=== PATIENT | female | born 1935 | race African-American/Black ===

== ENCOUNTER 2017-07-22 20:05 | Inpatient (IN) | payer MEDICARE, OTHER ==
[~2017-07-22] VITALS: Ht 157.5 cm; Wt 103.9 kg
[2017-07-22] MEDS ORDERED: IV NS 0.9% 500 ML BAG IV ONE (20:30)
[2017-07-22] MEDS ORDERED: VANCOMYCIN 1 GM in IV D5W 250 ML IV ONE (20:30)
[2017-07-22] MEDS ORDERED: MORPHINE SULFATE INJ 2 MG/ML DISP.SYRIN IV ONE (20:30)
[2017-07-22] MEDS ORDERED: ONDANSETRON HCL/PF 4 MG/2 ML VIAL IVP ONE (20:30)
[2017-07-22] MEDS ORDERED: PIPERACILLIN /TAZOBACTAM 3.375 G in IV D5W 50 ML IV ONE (20:30)
[2017-07-22] MEDS ORDERED: MORPHINE SULFATE INJ 2 MG/ML DISP.SYRIN ONE (20:46)
[2017-07-22] MEDS ORDERED: ONDANSETRON HCL/PF 4 MG/2 ML VIAL ONE (20:46)
[2017-07-22 20:48] LABS: BASOPHILS % (AUTO) 0.6 % (0.0-2.0); EOSINOPHILS # (AUTO) 0.1 /CMM (0.0-0.7); EOSINOPHILS % (AUTO) 2.1 % (0.0-6.0); HEMATOCRIT 33 % (33-45); HEMOGLOBIN 11.5 g/dL (11.5-14.8); LYMPHOCYTES # (AUTO) 0.9 /CMM (0.8-4.8); LYMPHOCYTES % (AUTO) 15.8 % (20.0-44.0); MEAN CORPUSCULAR HEMOGLOBIN 31 PG (26.0-33.0); MEAN CORPUSCULAR HGB CONC 35 g/dl (31.0-36.0); MEAN CORPUSCULAR VOLUME 89 fL (82-100); MONOCYTES # (AUTO) 0.5 /CMM (0.1-1.30); NEUTROPHILS # (AUTO) 4.5 /CMM (1.8-8.9); NEUTROPHILS % (AUTO) 72.5 % (43.0-81.0); PLATELET COUNT (AUTO) 257 /CMM (150-450); RDW COEFFICIENT OF VARIATION 13.9 (11.5-15.0); RED BLOOD CELL COUNT(AUTO) 3.74 MIL/uL (4.0-5.2)
[2017-07-22 20:58] LABS: CARBON DIOXIDE 32 mmol/L (21-32); CHLORIDE 99 mmol/L (98-107); CREATININE 1.4 mg/dL (0.6-1.3); GLUCOSE 111 mg/dL (74-106); POTASSIUM 4.2 mmol/L (3.5-5.1); SODIUM SERUM 137 mmol/L (136-145); UREA NITROGEN, BLOOD 27 mg/dL (7-18)
[2017-07-22 21:02] LABS: INR 0.95 (0.85-1.15)
[2017-07-22 21:04] LABS: ALANINE AMINOTRANSFERASE 60 U/L (12-78); ALBUMIN 2.6 g/dL (3.4-5.0); ALKALINE PHOSPHATASE 424 U/L (46-116); ASPARTATE AMINOTRANSFERASE 52 U/L (15-37); BILIRUBIN,DIRECT 0.2 mg/dL (0.0-0.2); BILIRUBIN,TOTAL 0.4 mg/dL (0.2-1.0); TOTAL PROTEIN, SERUM 8.6 g/dL (6.4-8.2)
[2017-07-22 21:06] LABS: TROPONIN I < 0.017 ng/mL (0.00-0.056)
[2017-07-22 21:26] LABS: APPEARANCE,URINE Clear (CLEAR); BILIRUBIN,URINE Negative (NEGATIVE); BLOOD, URINE Moderate Ery/uL (NEGATIVE); COLOR,URINE Yellow (YELLOW); KETONES,URINE Negative (NEGATIVE); LEUKOCYTE ESTERASE ,URINE Negative (NEGATIVE); NITRITE, URINE Negative (NEGATIVE); PH,URINE 6.5 (5.0-8.0); PROTEIN,URINE Negative (NEGATIVE); UGLUCOSE Negative (NEGATIVE); UROBILINOGEN,URINE 0.2 EU/dL (0.2)
[2017-07-22 21:27] LABS: BACTERIA,URINE Rare /HPF (None Seen); SQUAMOUS EPITHELIAL CELL,UR Few /HPF (None Seen); WBC,URINE NONE SEEN /HPF (0-3)
[2017-07-22] MEDS ORDERED: MAG HYDROX/AL HYDROX/SIMETH 30 ML UDC PO PRN (21:30)
[2017-07-22] MEDS ORDERED: ZOLPIDEM TARTRATE 5 MG TABLET PO PRN (21:30)
[2017-07-22] MEDS ORDERED: ACETAMINOPHEN 325 MG TABLET PO PRN (21:30)
[2017-07-22] MEDS ORDERED: MORPHINE SULFATE INJ 2 MG/ML DISP.SYRIN IV PRN (21:30)
[2017-07-22 23:15] VITALS: BP 139/96
[2017-07-23] MEDS: BLOOD SUGAR DIAGNOSTIC 1 EACH STRIP IN SCH ×7 (00:16→23:09)
[2017-07-23] MEDS: HYDROCODONE/APAP 5/325MG 1 EACH TABLET PO PRN ×2 (00:25→08:56)
[2017-07-23 04:00] VITALS: BP 114/72
[2017-07-23] MEDS ORDERED: PIPERACILLIN /TAZOBACTAM 2.25 G VIAL IV ONE (05:29)
[2017-07-23] MEDS: PIPERACILLIN /TAZOBACTAM 2.25 G in IV D5W 50 ML IV SCH ×3 (05:44→20:56)
[2017-07-23] MEDS: DEXTROSE 50%-WATER 50 ML DISP.SYRIN IV PRN ×2 (06:53→17:11)
[2017-07-23 07:21] LABS: BASOPHILS % (AUTO) 0.3 % (0.0-2.0); EOSINOPHILS # (AUTO) 0.3 /CMM (0.0-0.7); EOSINOPHILS % (AUTO) 4.7 % (0.0-6.0); HEMATOCRIT 30 % (33-45); LYMPHOCYTES # (AUTO) 0.7 /CMM (0.8-4.8); MEAN CORPUSCULAR HEMOGLOBIN 30 PG (26.0-33.0); MEAN CORPUSCULAR HGB CONC 33 g/dl (31.0-36.0); MEAN CORPUSCULAR VOLUME 91 fL (82-100); MONOCYTES # (AUTO) 0.7 /CMM (0.1-1.30); MONOCYTES % (AUTO) 12.8 % (2.0-12.0); NEUTROPHILS # (AUTO) 3.9 /CMM (1.8-8.9); NEUTROPHILS % (AUTO) 69.2 % (43.0-81.0); PLATELET COUNT (AUTO) 207 /CMM (150-450); RDW COEFFICIENT OF VARIATION 14.8 (11.5-15.0); RED BLOOD CELL COUNT(AUTO) 3.29 MIL/uL (4.0-5.2); WHITE BLOOD COUNT (AUTO) 5.6 K/uL (4.3-11.0)
[2017-07-23 07:28] LABS: CHOLESTEROL 115 mg/dL (<200); HDL CHOLESTEROL 63 mg/dL (40-60); LDL 44 mg/dL (0-99); THYROID STIMULATING HORMONE 3.861 uIU/mL (0.358-3.74); TRIGLYCERIDES 36 mg/dL (30-150)
[2017-07-23 07:30] LABS: CALCIUM, SERUM 8.3 mg/dL (8.5-10.1); CARBON DIOXIDE 31 mmol/L (21-32); CHLORIDE 104 mmol/L (98-107); CREATININE 1.3 mg/dL (0.6-1.3); GLUCOSE 86 mg/dL (74-106); MAGNESIUM 2.2 mg/dL (1.8-2.4); PHOSPHORUS 3.7 mg/dL (2.5-4.9); POTASSIUM 4.2 mmol/L (3.5-5.1); SODIUM SERUM 142 mmol/L (136-145); UREA NITROGEN, BLOOD 25 mg/dL (7-18)
[2017-07-23] MEDS ORDERED: FEE PK DOSING 1 MIN EA MC ONE (07:41)
[2017-07-23 08:00] VITALS: BP 86/54
[2017-07-23] MEDS ORDERED: FUROSEMIDE 20 MG/2 ML VIAL IV ONE (08:00)
[2017-07-23] MEDS ORDERED: LIDOCAINE 1% INJ 50 ML MDV IJ ONE (09:00)
[2017-07-23] MEDS: PANTOPRAZOLE 40 MG TABLET.DR PO SCH (09:02)
[2017-07-23] MEDS: HEPARIN SODIUM, PORCINE 5000 UNITS/1 ML VIAL SQ SCH ×2 (09:12→21:02)
[2017-07-23] MEDS ORDERED: LOSA25TA13 PO (09:25)
[2017-07-23] MEDS ORDERED: LEVO75TA7 PO (09:25)
[2017-07-23] MEDS ORDERED: FURO-144 PO (09:25)
[2017-07-23] MEDS ORDERED: Z GUARD REMEDY 2 OZ OINT TP PRN (09:30)
[2017-07-23] MEDS ORDERED: FUROSEMIDE 40 MG TABLET PO SCH (11:00)
[2017-07-23] MEDS: Z GUARD REMEDY 2 OZ OINT TP SCH (11:01)
[2017-07-23] MEDS: LEVOTHYROXINE SODIUM 75 MCG TABLET PO SCH (11:09)
[2017-07-23] MEDS ORDERED: IV D5/ 0.9% NACL 1,000 ML IV PRN (11:30)
[2017-07-23 16:01] VITALS: BP 106/56
[2017-07-23] MEDS: VANCOMYCIN 0.75 GM in IV NS 0.9% 250 ML IV SCH (16:08)
[2017-07-23] MEDS: CLOTRIMAZOLE 1% 15 GM TUBE TP SCH (17:30)
[2017-07-23] MEDS: IV 10% DEXTROSE 1,000 ML IV PRN (19:23)
[2017-07-23] MEDS: INSULIN REGULAR, HUMAN 100 UNIT/ML 3 ML VIAL SQ PRN (19:46)
[2017-07-23 20:00] VITALS: BP 109/52
[2017-07-24] MEDS: BLOOD SUGAR DIAGNOSTIC 1 EACH STRIP IN SCH ×11 (01:02→20:41)
[2017-07-24] MEDS: DEXTROSE 50%-WATER 50 ML DISP.SYRIN IV PRN (02:51)
[2017-07-24] MEDS: PIPERACILLIN /TAZOBACTAM 2.25 G in IV D5W 50 ML IV SCH ×4 (04:01→23:30)
[2017-07-24] MEDS: IV 10% DEXTROSE 1,000 ML IV PRN (04:55)
[2017-07-24] MEDS: CLOTRIMAZOLE 1% 15 GM TUBE TP SCH ×2 (04:57→16:48)
[2017-07-24 07:12] LABS: BASOPHILS % (AUTO) 0.5 % (0.0-2.0); EOSINOPHILS # (AUTO) 0.3 /CMM (0.0-0.7); EOSINOPHILS % (AUTO) 6.9 % (0.0-6.0); HEMATOCRIT 29 % (33-45); HEMOGLOBIN 9.8 g/dL (11.5-14.8); LYMPHOCYTES # (AUTO) 0.7 /CMM (0.8-4.8); LYMPHOCYTES % (AUTO) 15.8 % (20.0-44.0); MEAN CORPUSCULAR HEMOGLOBIN 31 PG (26.0-33.0); MEAN CORPUSCULAR HGB CONC 34 g/dl (31.0-36.0); MEAN CORPUSCULAR VOLUME 91 fL (82-100); MONOCYTES # (AUTO) 0.5 /CMM (0.1-1.30); MONOCYTES % (AUTO) 10.9 % (2.0-12.0); NEUTROPHILS # (AUTO) 2.9 /CMM (1.8-8.9); NEUTROPHILS % (AUTO) 65.9 % (43.0-81.0); PLATELET COUNT (AUTO) 178 /CMM (150-450); RDW COEFFICIENT OF VARIATION 14.4 (11.5-15.0); WHITE BLOOD COUNT (AUTO) 4.3 K/uL (4.3-11.0)
[2017-07-24 07:26] LABS: ALANINE AMINOTRANSFERASE 42 U/L (12-78); ALBUMIN 1.9 g/dL (3.4-5.0); ALKALINE PHOSPHATASE 303 U/L (46-116); ASPARTATE AMINOTRANSFERASE 41 U/L (15-37); BILIRUBIN,TOTAL 0.5 mg/dL (0.2-1.0); CARBON DIOXIDE 28 mmol/L (21-32); CHLORIDE 100 mmol/L (98-107); CREATININE 1.4 mg/dL (0.6-1.3); GLUCOSE 147 mg/dL (74-106); MAGNESIUM 2.1 mg/dL (1.8-2.4); PHOSPHORUS 3.5 mg/dL (2.5-4.9); SODIUM SERUM 134 mmol/L (136-145); TOTAL PROTEIN, SERUM 6.8 g/dL (6.4-8.2); UREA NITROGEN, BLOOD 23 mg/dL (7-18)
[2017-07-24 07:28] LABS: TROPONIN I < 0.017 ng/mL (0.00-0.056)
[2017-07-24] MEDS ORDERED: OLOP2.5D RIGHTEYE (07:37)
[2017-07-24] MEDS ORDERED: PRED5DRO16 LEFTEYE (07:37)
[2017-07-24 08:00] VITALS: BP 111/57
[2017-07-24] MEDS: PANTOPRAZOLE 40 MG TABLET.DR PO SCH (08:14)
[2017-07-24] MEDS: LEVOTHYROXINE SODIUM 75 MCG TABLET PO SCH (08:14)
[2017-07-24] MEDS ORDERED: FUROSEMIDE 20 MG TABLET PO SCH (09:00)
[2017-07-24] MEDS: Z GUARD REMEDY 2 OZ OINT TP SCH (09:12)
[2017-07-24] MEDS: HEPARIN SODIUM, PORCINE 5000 UNITS/1 ML VIAL SQ SCH ×2 (09:14→20:51)
[2017-07-24] MEDS: HYDROCODONE/APAP 5/325MG 1 EACH TABLET PO PRN ×2 (09:15→20:40)
[2017-07-24] MEDS: VANCOMYCIN 0.75 GM in IV NS 0.9% 250 ML IV SCH (10:47)
[2017-07-24 16:00] VITALS: BP 100/53
[2017-07-24] MEDS: LACTOBACILLUS RHAMNOSUS GG 1 EACH CAP.SPRINK PO SCH (16:48)
[2017-07-24] MEDS: ONDANSETRON HCL/PF 4 MG/2 ML VIAL IVP PRN (16:52)
[2017-07-24] MEDS: INSULIN REGULAR, HUMAN 100 UNIT/ML 3 ML VIAL SQ PRN ×2 (17:10→20:41)
[2017-07-24] MEDS: prednisoLONE ACET 1% OPHT DROP 5 ML BOTTLE LEFTEYE SCH ×2 (18:03→23:31)
[2017-07-24 20:00] VITALS: BP 123/68
[2017-07-25] MEDS: MAGNESIUM HYDROXIDE 30 ML UDC PO PRN ×2 (00:43→20:33)
[2017-07-25] MEDS: BLOOD SUGAR DIAGNOSTIC 1 EACH STRIP IN SCH ×6 (00:58→20:25)
[2017-07-25 03:13] LABS: BASOPHILS % (AUTO) 0.7 % (0.0-2.0); EOSINOPHILS # (AUTO) 0.3 /CMM (0.0-0.7); EOSINOPHILS % (AUTO) 7.8 % (0.0-6.0); HEMATOCRIT 29 % (33-45); HEMOGLOBIN 9.5 g/dL (11.5-14.8); LYMPHOCYTES # (AUTO) 0.9 /CMM (0.8-4.8); LYMPHOCYTES % (AUTO) 23.9 % (20.0-44.0); MEAN CORPUSCULAR HEMOGLOBIN 30 PG (26.0-33.0); MEAN CORPUSCULAR HGB CONC 33 g/dl (31.0-36.0); MEAN CORPUSCULAR VOLUME 91 fL (82-100); MONOCYTES # (AUTO) 0.4 /CMM (0.1-1.30); MONOCYTES % (AUTO) 10.4 % (2.0-12.0); NEUTROPHILS # (AUTO) 2.2 /CMM (1.8-8.9); NEUTROPHILS % (AUTO) 57.2 % (43.0-81.0); PLATELET COUNT (AUTO) 207 /CMM (150-450); RDW COEFFICIENT OF VARIATION 14.6 (11.5-15.0); RED BLOOD CELL COUNT(AUTO) 3.19 MIL/uL (4.0-5.2); WHITE BLOOD COUNT (AUTO) 3.8 K/uL (4.3-11.0)
[2017-07-25 03:28] LABS: CARBON DIOXIDE 29 mmol/L (21-32); CHLORIDE 99 mmol/L (98-107); CREATININE 1.5 mg/dL (0.6-1.3); GLUCOSE 109 mg/dL (74-106); MAGNESIUM 2.1 mg/dL (1.8-2.4); PHOSPHORUS 3.6 mg/dL (2.5-4.9); POTASSIUM 4.2 mmol/L (3.5-5.1); SODIUM SERUM 134 mmol/L (136-145); UREA NITROGEN, BLOOD 21 mg/dL (7-18)
[2017-07-25] MEDS: VANCOMYCIN 0.75 GM in IV NS 0.9% 250 ML IV SCH (03:54)
[2017-07-25] MEDS: PIPERACILLIN /TAZOBACTAM 2.25 G in IV D5W 50 ML IV SCH ×4 (05:05→23:12)
[2017-07-25] MEDS: CLOTRIMAZOLE 1% 15 GM TUBE TP SCH ×2 (05:11→17:57)
[2017-07-25] MEDS: prednisoLONE ACET 1% OPHT DROP 5 ML BOTTLE LEFTEYE SCH ×4 (05:12→23:12)
[2017-07-25] MEDS: INSULIN REGULAR, HUMAN 100 UNIT/ML 3 ML VIAL SQ PRN ×2 (05:15→09:45)
[2017-07-25 08:00] VITALS: BP 138/70
[2017-07-25] MEDS: LEVOTHYROXINE SODIUM 75 MCG TABLET PO SCH (09:15)
[2017-07-25] MEDS: PANTOPRAZOLE 40 MG TABLET.DR PO SCH (09:16)
[2017-07-25] MEDS: Z GUARD REMEDY 2 OZ OINT TP SCH (09:17)
[2017-07-25] MEDS: OLOPATADINE HCL 0.1% OPHTH BOTTLE RIGHTEYE SCH (09:37)
[2017-07-25] MEDS: LACTOBACILLUS RHAMNOSUS GG 1 EACH CAP.SPRINK PO SCH ×2 (09:37→17:59)
[2017-07-25] MEDS: HEPARIN SODIUM, PORCINE 5000 UNITS/1 ML VIAL SQ SCH ×2 (09:38→20:26)
[2017-07-25] MEDS: HYDROCODONE/APAP 5/325MG 1 EACH TABLET PO PRN (11:49)
[2017-07-25] MEDS: SOD FERRIC GLUC 125 MG in IV NS 0.9% 100 ML IV SCH (14:44)
[2017-07-25 16:00] VITALS: BP 141/68
[2017-07-25 20:00] VITALS: BP 136/76
[2017-07-26] MEDS: BLOOD SUGAR DIAGNOSTIC 1 EACH STRIP IN SCH ×6 (00:24→20:16)
[2017-07-26] MEDS: PIPERACILLIN /TAZOBACTAM 2.25 G in IV D5W 50 ML IV SCH ×4 (05:12→23:16)
[2017-07-26] MEDS: prednisoLONE ACET 1% OPHT DROP 5 ML BOTTLE LEFTEYE SCH ×4 (05:12→23:20)
[2017-07-26] MEDS: CLOTRIMAZOLE 1% 15 GM TUBE TP SCH ×2 (05:14→17:45)
[2017-07-26] MEDS ORDERED: VANCOMYCIN 0.75 GM in IV NS 0.9% 250 ML IV SCH (06:00)
[2017-07-26 06:39] LABS: BASOPHILS % (AUTO) 0.8 % (0.0-2.0); EOSINOPHILS # (AUTO) 0.3 /CMM (0.0-0.7); HEMATOCRIT 31 % (33-45); HEMOGLOBIN 9.9 g/dL (11.5-14.8); LYMPHOCYTES # (AUTO) 0.8 /CMM (0.8-4.8); LYMPHOCYTES % (AUTO) 20.1 % (20.0-44.0); MEAN CORPUSCULAR HEMOGLOBIN 30 PG (26.0-33.0); MEAN CORPUSCULAR HGB CONC 33 g/dl (31.0-36.0); MEAN CORPUSCULAR VOLUME 91 fL (82-100); MONOCYTES # (AUTO) 0.4 /CMM (0.1-1.30); MONOCYTES % (AUTO) 9.4 % (2.0-12.0); NEUTROPHILS # (AUTO) 2.6 /CMM (1.8-8.9); NEUTROPHILS % (AUTO) 62.7 % (43.0-81.0); PLATELET COUNT (AUTO) 216 /CMM (150-450); RDW COEFFICIENT OF VARIATION 14.9 (11.5-15.0); RED BLOOD CELL COUNT(AUTO) 3.36 MIL/uL (4.0-5.2); WHITE BLOOD COUNT (AUTO) 4.2 K/uL (4.3-11.0)
[2017-07-26 06:54] LABS: CALCIUM, SERUM 8.1 mg/dL (8.5-10.1); CARBON DIOXIDE 30 mmol/L (21-32); CHLORIDE 100 mmol/L (98-107); CREATININE 1.4 mg/dL (0.6-1.3); GLUCOSE 129 mg/dL (74-106); MAGNESIUM 2.6 mg/dL (1.8-2.4); PHOSPHORUS 3.1 mg/dL (2.5-4.9); POTASSIUM 4.6 mmol/L (3.5-5.1); SODIUM SERUM 136 mmol/L (136-145); UREA NITROGEN, BLOOD 19 mg/dL (7-18)
[2017-07-26 08:00] VITALS: BP 120/72
[2017-07-26] MEDS: LACTOBACILLUS RHAMNOSUS GG 1 EACH CAP.SPRINK PO SCH ×2 (08:28→17:44)
[2017-07-26] MEDS: LEVOTHYROXINE SODIUM 75 MCG TABLET PO SCH (08:28)
[2017-07-26] MEDS: PANTOPRAZOLE 40 MG TABLET.DR PO SCH (08:28)
[2017-07-26] MEDS: OLOPATADINE HCL 0.1% OPHTH BOTTLE RIGHTEYE SCH (08:30)
[2017-07-26] MEDS: HEPARIN SODIUM, PORCINE 5000 UNITS/1 ML VIAL SQ SCH ×2 (08:33→20:18)
[2017-07-26] MEDS: Z GUARD REMEDY 2 OZ OINT TP SCH (08:42)
[2017-07-26 09:17] LABS: *SPE A/G RATIO 0.6 (0.7-1.7); *SPE ALBUMIN 2.4 g/dL (2.9-4.4); *SPE ALPHA-1-GLOBULIN 0.3 g/dL (0.0-0.4); *SPE ALPHA-2-GLOBULIN 0.9 g/dL (0.4-1.0); *SPE BETA GLOBULIN 1.2 g/dL (0.7-1.3); *SPE M-SPIKE Not Observed g/dL (Not Observed); *SPEGAMMA GLOBULIN 1.6 g/dL (0.4-1.8)
[2017-07-26] MEDS: LINEZOLID 600 MG TABLET PO SCH ×2 (11:47→20:19)
[2017-07-26] MEDS: SOD FERRIC GLUC 125 MG in IV NS 0.9% 100 ML IV SCH (14:38)
[2017-07-26 16:00] VITALS: BP 145/82
[2017-07-26] MEDS: ONDANSETRON HCL/PF 4 MG/2 ML VIAL IVP PRN (19:42)
[2017-07-26 20:00] VITALS: BP 138/73
[2017-07-27] MEDS: BLOOD SUGAR DIAGNOSTIC 1 EACH STRIP IN SCH ×6 (00:47→20:56)
[2017-07-27] MEDS: PIPERACILLIN /TAZOBACTAM 2.25 G in IV D5W 50 ML IV SCH ×3 (05:03→17:40)
[2017-07-27] MEDS: prednisoLONE ACET 1% OPHT DROP 5 ML BOTTLE LEFTEYE SCH ×3 (05:03→17:38)
[2017-07-27] MEDS: CLOTRIMAZOLE 1% 15 GM TUBE TP SCH ×2 (05:10→17:41)
[2017-07-27 06:08] LABS: BASOPHILS % (AUTO) 0.6 % (0.0-2.0); EOSINOPHILS # (AUTO) 0.1 /CMM (0.0-0.7); EOSINOPHILS % (AUTO) 3.1 % (0.0-6.0); HEMATOCRIT 31 % (33-45); LYMPHOCYTES # (AUTO) 0.8 /CMM (0.8-4.8); MEAN CORPUSCULAR HEMOGLOBIN 30 PG (26.0-33.0); MEAN CORPUSCULAR HGB CONC 32 g/dl (31.0-36.0); MEAN CORPUSCULAR VOLUME 92 fL (82-100); MONOCYTES # (AUTO) 0.4 /CMM (0.1-1.30); MONOCYTES % (AUTO) 8.8 % (2.0-12.0); NEUTROPHILS # (AUTO) 2.7 /CMM (1.8-8.9); NEUTROPHILS % (AUTO) 66.5 % (43.0-81.0); PLATELET COUNT (AUTO) 219 /CMM (150-450); RDW COEFFICIENT OF VARIATION 14.7 (11.5-15.0)
[2017-07-27 06:13] LABS: CALCIUM, SERUM 8.5 mg/dL (8.5-10.1); CARBON DIOXIDE 31 mmol/L (21-32); CHLORIDE 100 mmol/L (98-107); CREATININE 1.3 mg/dL (0.6-1.3); GLUCOSE 100 mg/dL (74-106); MAGNESIUM 2.6 mg/dL (1.8-2.4); PHOSPHORUS 3.3 mg/dL (2.5-4.9); POTASSIUM 4.8 mmol/L (3.5-5.1); SODIUM SERUM 136 mmol/L (136-145); UREA NITROGEN, BLOOD 17 mg/dL (7-18)
[2017-07-27 08:00] VITALS: BP 134/75
[2017-07-27 08:03] VITALS: BP 134/71
[2017-07-27] MEDS: LACTOBACILLUS RHAMNOSUS GG 1 EACH CAP.SPRINK PO SCH ×2 (09:31→17:37)
[2017-07-27] MEDS: LINEZOLID 600 MG TABLET PO SCH ×2 (09:31→20:56)
[2017-07-27] MEDS: PANTOPRAZOLE 40 MG TABLET.DR PO SCH (09:31)
[2017-07-27] MEDS: OLOPATADINE HCL 0.1% OPHTH BOTTLE RIGHTEYE SCH (09:31)
[2017-07-27] MEDS: LEVOTHYROXINE SODIUM 75 MCG TABLET PO SCH (09:32)
[2017-07-27] MEDS: HYDROCODONE/APAP 5/325MG 1 EACH TABLET PO PRN ×2 (09:33→17:37)
[2017-07-27] MEDS: Z GUARD REMEDY 2 OZ OINT TP SCH (09:37)
[2017-07-27] MEDS: HEPARIN SODIUM, PORCINE 5000 UNITS/1 ML VIAL SQ SCH ×2 (09:40→20:59)
[2017-07-27] MEDS: SOD FERRIC GLUC 125 MG in IV NS 0.9% 100 ML IV SCH (15:26)
[2017-07-27] MEDS: ONDANSETRON HCL/PF 4 MG/2 ML VIAL IVP PRN (15:26)
[2017-07-27] MEDS: MAGNESIUM HYDROXIDE 30 ML UDC PO PRN (15:26)
[2017-07-27 16:00] VITALS: BP 145/72
[2017-07-27 20:00] VITALS: BP 107/64
[2017-07-27] MEDS ORDERED: LEVOFLOXACIN 750 MG /D5W 150ML 750 MG in PREMIX 1 EA IV SCH (20:00)
[2017-07-28] MEDS: BLOOD SUGAR DIAGNOSTIC 1 EACH STRIP IN SCH ×4 (00:33→12:21)
[2017-07-28] MEDS: prednisoLONE ACET 1% OPHT DROP 5 ML BOTTLE LEFTEYE SCH ×3 (00:33→12:21)
[2017-07-28 08:00] VITALS: BP 127/72
[2017-07-28] MEDS: PANTOPRAZOLE 40 MG TABLET.DR PO SCH (08:23)
[2017-07-28] MEDS: LINEZOLID 600 MG TABLET PO SCH (08:23)
[2017-07-28] MEDS: LEVOTHYROXINE SODIUM 75 MCG TABLET PO SCH (08:23)
[2017-07-28] MEDS: OLOPATADINE HCL 0.1% OPHTH BOTTLE RIGHTEYE SCH (08:23)
[2017-07-28] MEDS: LACTOBACILLUS RHAMNOSUS GG 1 EACH CAP.SPRINK PO SCH (08:23)
[2017-07-28] MEDS: HEPARIN SODIUM, PORCINE 5000 UNITS/1 ML VIAL SQ SCH (08:25)
[2017-07-28] MEDS: Z GUARD REMEDY 2 OZ OINT TP SCH (08:25)
[2017-07-28] MEDS ORDERED: BISACODYL SUPP (10 MG) 10 MG/SUPP.RECT SUPP.RECT RC PRN (12:00)
[2017-07-28] MEDS ORDERED: LACT1CAP72 PO (12:49)
[2017-07-28] MEDS ORDERED: LINE600T PO (12:49)
[2017-07-28] MEDS ORDERED: LEVO750T46 PO (12:49)
== END 2017-07-28 14:35 | DRG 264 ==
LOC: ER 20:06 → TELE 22:05 → MED 07-23 02:10
PROVIDERS: ADMIT Nurse Practitioner Acute Care; ATTEND Nurse Practitioner Acute Care
PROC: 0JBP0ZZ Excision of Left Lower Leg Subcutaneous Tissue and Fascia, Open Approach (ICD-10-PCS; principal; 2017-07-23)
PROC: 0JBN0ZZ Excision of Right Lower Leg Subcutaneous Tissue and Fascia, Open Approach (ICD-10-PCS; 2017-07-23)
DX: I87.2 Venous insufficiency (chronic) (peripheral) (principal); N17.0 Acute kidney failure with tubular necrosis; I50.33 Acute on chronic diastolic (congestive) heart failure; E44.0 Moderate protein-calorie malnutrition; L03.115 Cellulitis of right lower limb; E11.22 Type 2 diabetes mellitus with diabetic chronic kidney disease; E11.649 Type 2 diabetes mellitus with hypoglycemia without coma; E88.09 Other disorders of plasma-protein metabolism, not elsewhere classified; I13.0 Hypertensive heart and chronic kidney disease with heart failure and stage 1 through stage 4 chronic kidney disease, or unspecified chronic kidney disease; N39.0 Urinary tract infection, site not specified; Z68.41 Body mass index [BMI] 40.0-44.9, adult; L03.116 Cellulitis of left lower limb; N18.9 Chronic kidney disease, unspecified; M17.0 Bilateral primary osteoarthritis of knee; B96.5 Pseudomonas (aeruginosa) (mallei) (pseudomallei) as the cause of diseases classified elsewhere; E03.9 Hypothyroidism, unspecified; E66.9 Obesity, unspecified; G89.29 Other chronic pain; Z96.653 Presence of artificial knee joint, bilateral; Z98.42 Cataract extraction status, left eye; M62.50 Muscle wasting and atrophy, not elsewhere classified, unspecified site; D64.9 Anemia, unspecified; L30.4 Erythema intertrigo; K59.00 Constipation, unspecified; B95.2 Enterococcus as the cause of diseases classified elsewhere; Z16.21 Resistance to vancomycin; Z79.4 Long term (current) use of insulin
CPT/HCPCS: 36415; 71045-TC; 80048-TC; 80053-TC; 80061-TC; 80076-TC; 80202-TC; 81000-TC; 82728-TC; 82945-TC; 82962-TC; 83540-TC; 83605-TC; 83735-TC; 84100-TC; 84155; 84165; 84443-TC; 84484-TC; 85025-TC; 85730-TC; 87040-TC; 87070-TC; 87081-TC; 87086-TC; 87186-TC; 93307-TC; 93970-TC; 97110-TC; 97116-TC; 97530-TC; A4216; A4606; A6253; A6402; A6403; J1644; J1815; J1940; J1956; J2270; J2405; J2543; J2916; J3370; J3490; J7030; J7040; J7050; J7060; Z7610

== ENCOUNTER 2018-08-27 18:37 | Inpatient (IN) | payer MEDICARE, OTHER ==
[~2018-08-27] VITALS: Ht 154.9 cm; Wt 108.9 kg
[~2018-08-27 18:37] MED LIST: FURO-144 PO; LACT1CAP72 PO; LEVO750T46 PO; LEVO75TA7 PO; LINE600T PO; LOSA25TA27 PO; OLOP2.5D RIGHTEYE; PRED5DRO16 LEFTEYE
--- NOTE | 2018-08-27 18:37 | NUR ---
PT BIB [facility] FOR [facility]OMITING BLOOD, PT IS AAOX2, NOT IN RESPIRATORY DISTRESS, HOOKED TO MONITOR, V/S STABLE, KEPT RESTED AND COMFORTABLE, WILL CONTINUE TO MONITOR.
--- NOTE | 2018-08-27 18:40 | NUR ---
IV LINE ESTABLISHED, LABS DRAWNED AND SENT TO LAB.
[2018-08-27] MEDS ORDERED: OCTREOTIDE 1,250 MCG in IV NS 0.9% 250 ML IV ONE (19:00)
[2018-08-27] MEDS ORDERED: PANTOPRAZOLE 40 MG VIAL IV ONE (19:00)
[2018-08-27] MEDS ORDERED: ONDANSETRON HCL/PF 4 MG/2 ML VIAL IVP ONE (19:00)
[2018-08-27] MEDS ORDERED: OCTREOTIDE 50 MCG/ML AMPUL IV ONE (19:00)
[2018-08-27] MEDS ORDERED: IV NS 0.9% 500 ML BAG IV ONE (19:00)
[2018-08-27] MEDS ORDERED: POLY15DR40 EACHEYE (19:06)
[2018-08-27] MEDS ORDERED: ALBU18HF2 INH (19:06)
[2018-08-27] MEDS ORDERED: ASPI-1169 PO (19:06)
[2018-08-27] MEDS ORDERED: POTA8TAB8 PO (19:07)
[2018-08-27 19:08] LABS: BASOPHILS % (AUTO) 0.5 % (0.0-2.0); EOSINOPHILS % (AUTO) 1.3 % (0.0-6.0); HEMATOCRIT 27 % (33-45); LYMPHOCYTES # (AUTO) 0.4 /CMM (0.8-4.8); MEAN CORPUSCULAR HGB CONC 33 g/dl (31.0-36.0); MEAN CORPUSCULAR VOLUME 94 fL (82-100); MONOCYTES # (AUTO) 0.2 /CMM (0.1-1.30); MONOCYTES % (AUTO) 4.1 % (2.0-12.0); NEUTROPHILS # (AUTO) 3.2 /CMM (1.8-8.9); NEUTROPHILS % (AUTO) 83.1 % (43.0-81.0); PLATELET COUNT (AUTO) 198 /CMM (150-450); RED BLOOD CELL COUNT(AUTO) 2.89 MIL/uL (4.0-5.2); WHITE BLOOD COUNT (AUTO) 3.9 K/uL (4.3-11.0)
[2018-08-27] MEDS ORDERED: PANTOPRAZOLE 40 MG VIAL ONE (19:09)
[2018-08-27] MEDS ORDERED: ONDANSETRON HCL/PF 4 MG/2 ML VIAL ONE (19:09)
[2018-08-27] MEDS ORDERED: OCTREOTIDE 100 MCG/ML VIAL ONE ×2 (19:10→19:24)
[2018-08-27] MEDS ORDERED: OCTREOTIDE 500 MCG/ML VIAL ONE (19:24)
[2018-08-27 19:29] LABS: CARBON DIOXIDE 25 mmol/L (21-32); CHLORIDE 103 mmol/L (98-107); CREATININE 1.1 mg/dL (0.6-1.3); GLUCOSE 150 mg/dL (74-106); POTASSIUM 4.2 mmol/L (3.5-5.1); SODIUM SERUM 138 mmol/L (136-145); UREA NITROGEN, BLOOD 32 mg/dL (7-18)
[2018-08-27 19:35] LABS: ALANINE AMINOTRANSFERASE 733 U/L (12-78); ALBUMIN 3.2 g/dL (3.4-5.0); ALKALINE PHOSPHATASE 543 U/L (46-116); ASPARTATE AMINOTRANSFERASE 812 U/L (15-37); BILIRUBIN,DIRECT 0.7 mg/dL (0.0-0.2); BILIRUBIN,TOTAL 1.2 mg/dL (0.2-1.0); LIPASE 204 U/L (73-393)
--- NOTE | 2018-08-27 19:45 | NUR ---
SKIMMER SCOOP OPERATOR AT BEDSIDE FOR XRAY.
--- NOTE | 2018-08-27 19:45 | NUR ---
REPORT GIVEN TO MAGGIE FENTON FOR MARU.
[2018-08-27 20:07] LABS: SERUM AMMONIA 20 umol/L (11-32)
--- NOTE | 2018-08-27 20:29 | NUR ---
ADMIT TO [facility] DX GI BLEED ACCEPTING YANETH PINO
[2018-08-27] MEDS ORDERED: IOHEXOL-350 100 ML VIAL IV ONE (20:42)
[2018-08-27] MEDS ORDERED: IV NS 0.9% 250 ML IV ONE (20:42)
[2018-08-27] MEDS ORDERED: CT SWABBABLE VALVE TRANS SET 1 EA INFUS.SET MC ONE (20:42)
[2018-08-27 20:59] LABS: B-TYPE NATRIURETIC PEPTIDE 369 PG/ML (0-125)
--- NOTE | 2018-08-27 20:59 | NUR ---
PT TAKEN TO CT.
--- NOTE | 2018-08-27 21:14 | NUR ---
PT RETURNED FROM CT.
--- NOTE | 2018-08-27 22:27 | NUR ---
REPORT GIVEN TO DEXTER SERRANO MAURICE FOR MARU.
--- NOTE | 2018-08-27 22:35 | NUR ---
TD HOOP CUTTER NOTE: PT ADMITTED FROM [facility] WITH ADMITTING DIAGNOSIS OF GI BLEED. PT IS ALERT AND ORIENTED X2-3, VERBALLY RESPONSIVE. NO APPARENT DISTRESS NOTED. DENIES PAIN AND DISCOMFORT AT THIS TIME. ON 3LPM NASAL CANNULA, NO SOB NOTED. ON TELE MONITOR SINUS JULIANNE HR 51BPM. PT HAS AN IV ON LEFT AND RIGHT ANTECUBITAL #18 INTACT AND PATENT, FLUSHING WELL. PERTINENT ASSESSMENTS DONE. MULTIPLE SKIN DISCOLORATION WAS NOTED ON EXTREMITIES, PICTURES TAKEN AND PLACED ON CHART. KEPT CLEAN, DRY AND COMFORTABLE. CALL LIGHT PLACED WITHIN REACH. SAFETY AND FALL PRECAUTIONS OBSERVED AND MAINTAINED. WILL CONTINUE TO MONITOR PT.
[2018-08-27 23:05] VITALS: BP 137/61
[2018-08-27] MEDS ORDERED: ALBUTEROL FS 2.5 MG/0.5 ML VIAL.NEB NEB PRN (23:45)
[2018-08-28] VITALS: BP 142/69
[2018-08-28] MEDS ORDERED: ALBUTEROL SULFATE 8 GM HFA.AER.AD IH PRN
[2018-08-28] MEDS ORDERED: MAGNESIUM HYDROXIDE 30 ML UDC PO PRN
[2018-08-28] MEDS ORDERED: DEXTROSE 50%-WATER 50 ML DISP.SYRIN IV PRN
[2018-08-28] MEDS ORDERED: ONDANSETRON HCL/PF 4 MG/2 ML VIAL IVP PRN
[2018-08-28] MEDS ORDERED: MAG HYDROX/AL HYDROX/SIMETH 30 ML UDC PO PRN
[2018-08-28] MEDS ORDERED: OCTREOTIDE 1,250 MCG in IV NS 0.9% 247.5 ML IV ONE (03:30)
[2018-08-28 04:00] VITALS: BP 140/65
--- NOTE | 2018-08-28 06:42 | NUR ---
TD RN NOTE: NO CHANGES NOTED THROUGHOUT THE SHIFT. NO APPARENT DISTRESS NOTED. DENIES PAIN AND DISCOMFORT AT THIS TIME. ON 3LPM NASAL CANNULA, NO SOB NOTED. NO NAUSEA/VOMITING NOTED. SINUS RHYTHM ON TELE MONITOR HR 73BPM. IV ON RIGHT ANTECUBITAL #18 INTACT AND PATENT, IVF INFUSING WELL. KEPT CLEAN, DRY AND COMFORTABLE. SAFETY AND FALL PRECAUTIONS OBSERVED AND MAINTAINED. WILL ENDORSE TO DAY SHIFT RN FOR CONTINUITY OF CARE.
[2018-08-28 07:10] LABS: BASOPHILS % (AUTO) 0.5 % (0.0-2.0); EOSINOPHILS % (AUTO) 2.9 % (0.0-6.0); HEMATOCRIT 23 % (33-45); HEMOGLOBIN 7.8 g/dL (11.5-14.8); LYMPHOCYTES # (AUTO) 0.6 /CMM (0.8-4.8); LYMPHOCYTES % (AUTO) 17.8 % (20.0-44.0); MEAN CORPUSCULAR HGB CONC 34 g/dl (31.0-36.0); MEAN CORPUSCULAR VOLUME 95 fL (82-100); MONOCYTES # (AUTO) 0.3 /CMM (0.1-1.30); MONOCYTES % (AUTO) 9.5 % (2.0-12.0); NEUTROPHILS # (AUTO) 2.3 /CMM (1.8-8.9); NEUTROPHILS % (AUTO) 69.3 % (43.0-81.0); PLATELET COUNT (AUTO) 151 /CMM (150-450); RED BLOOD CELL COUNT(AUTO) 2.47 MIL/uL (4.0-5.2); WHITE BLOOD COUNT (AUTO) 3.3 K/uL (4.3-11.0)
--- NOTE | 2018-08-28 07:10 | NUR ---
RN INITIAL NOTES: Rec'd pt asleep on bed, arousable, A/O x 2-3, not in any distress. On NC at 3lpm, no SOB. On telemonitor, SR/SB. Has 2 IV line access, L AC G18 w/ Sandostatin x 10 cc/hr infusing well & R AC G18, SL, both no s/sx of infection/infiltration noted. Safety precaution in place w/ bed in lowest & locked pos. Call light placed w/in reach. Will cont to monitor & attend pt needs.
[2018-08-28 07:40] LABS: ALANINE AMINOTRANSFERASE 514 U/L (12-78); ALBUMIN 2.5 g/dL (3.4-5.0); ALKALINE PHOSPHATASE 439 U/L (46-116); ASPARTATE AMINOTRANSFERASE 444 U/L (15-37); BILIRUBIN,DIRECT 0.2 mg/dL (0.0-0.2); BILIRUBIN,TOTAL 0.7 mg/dL (0.2-1.0); CALCIUM, SERUM 8.3 mg/dL (8.5-10.1); CARBON DIOXIDE 25 mmol/L (21-32); CHLORIDE 109 mmol/L (98-107); GLUCOSE 88 mg/dL (74-106); MAGNESIUM 2.6 mg/dL (1.8-2.4); PHOSPHORUS 3.7 mg/dL (2.5-4.9); POTASSIUM 4.3 mmol/L (3.5-5.1); SODIUM SERUM 143 mmol/L (136-145); TOTAL PROTEIN, SERUM 6.6 g/dL (6.4-8.2); UREA NITROGEN, BLOOD 25 mg/dL (7-18)
[2018-08-28] MEDS: LEVOTHYROXINE SODIUM 75 MCG TABLET PO SCH (07:40)
[2018-08-28] MEDS: BLOOD SUGAR DIAGNOSTIC 1 EACH STRIP IN SCH ×4 (07:44→22:07)
[2018-08-28] MEDS: INSULIN REGULAR, HUMAN 100 UNIT/ML 3 ML VIAL SQ PRN ×4 (07:45→22:07)
[2018-08-28 07:57] LABS: CHOLESTEROL 129 mg/dL (<200); HDL CHOLESTEROL 71 mg/dL (40-60); LDL 54 mg/dL (0-99); THYROID STIMULATING HORMONE 0.435 uIU/mL (0.358-3.74); TRIGLYCERIDES 19 mg/dL (30-150)
[2018-08-28 08:00] VITALS: BP 122/63
--- NOTE | 2018-08-28 08:38 | NUR ---
Rechecked BS after an hour 131 mg/dl.
[2018-08-28] MEDS: PANTOPRAZOLE 40 MG VIAL IV SCH ×2 (09:06→17:11)
[2018-08-28] MEDS: LOSARTAN POTASSIUM 50 MG TABLET PO SCH (09:07)
[2018-08-28] MEDS: Z GUARD REMEDY 2 OZ OINT TP PRN (09:08)
[2018-08-28] MEDS: POLYVINYL ALCOHOL 15 ML BOTTLE EACHEYE PRN ×2 (11:20→17:15)
[2018-08-28 12:00] VITALS: BP 131/63
--- NOTE | 2018-08-28 13:00 | NUR ---
Pt seen & examined by ODETTE Bloom.
[2018-08-28 16:00] VITALS: BP 121/65
--- NOTE | 2018-08-28 16:29 | NUR ---
Dr. Costa updated about pt status. ordered to get consent for EGD scheduled lashae AM. NPO post MN. Family was able to Dr. Costa regarding the said procedure.
--- NOTE | 2018-08-28 18:35 | NUR ---
RN CLOSING NOTES: No significant changes noted w/in shift. Pt tolerated NC at 3lpm, no SOB. On telemonitor, remains SR/SB. R AC G18, SL, kept patent & intact w/ no s/sx of infection/infiltration noted. Consent for EGD, anesthesia & BT signed by pt's daughter Ana Laura, placed in the chart. Pt informed about NPO post MN w/ verbalization of understanding. Safety precaution kept in place at all times w/ bed in lowest & locked pos. Call light placed w/in reach. Will endorse to PM RN for MARU.
--- NOTE | 2018-08-28 19:20 | NUR ---
RN NOTES, Patient in bed awake a/o x2 breathing even and unlabored, no sob/acute distress noted at this time, Pt tolerated NC at 3lpm, On telemonitor, remains SB at this time HR IN 50s at this time, . R AC G18, SL, patent & intact, no s/s infiltration noted, patient will have EGD in the morning, and will be NPO after midnight, explained to patient and verbalized understanding, Safety precaution in place at all times, bed in locked and lowest position, Call light placed w/i reach, Will continue to monitor closely.
[2018-08-28 20:00] VITALS: BP 139/73
--- NOTE | 2018-08-28 23:04 | NUR ---
RN NOTES, NOTED PATIENT WITH NOSE BLEED AND SPIT IT OUT THOUGHT THE MOUTH, NOTED 200CC TOTAL MIXED WITH SALIVA, PATIENT OUT ON HUMIDIFIER FOR OXYGEN FIRST BUT PATIENT CONTINUE BLEEDING, THEN PUT PATIENT ON NOSE CLAMP AND SWITCH FROM SIMPLE CANULA TO SIMPLE MASK, INFORMED WOLFE CASTING TECHNICIAN AND REPLIED WITH NEW ORDER FOR H&H STAT, NOTED AND CARRIED OUT, WILL CONTINUE TO MONITOR CLOSELY.
[2018-08-29] VITALS (11 sets, daily range): BP systolic 115–142; BP diastolic 62–164
[2018-08-29 00:24] LABS: HEMOGLOBIN 7.5 g/dL (11.5-14.8)
[2018-08-29 06:30] LABS: BASOPHILS % (AUTO) 0.8 % (0.0-2.0); EOSINOPHILS % (AUTO) 6.1 % (0.0-6.0); HEMATOCRIT 22 % (33-45); HEMOGLOBIN 7.3 g/dL (11.5-14.8); LYMPHOCYTES # (AUTO) 0.6 /CMM (0.8-4.8); LYMPHOCYTES % (AUTO) 14.9 % (20.0-44.0); MEAN CORPUSCULAR HGB CONC 33 g/dl (31.0-36.0); MEAN CORPUSCULAR VOLUME 95 fL (82-100); MONOCYTES # (AUTO) 0.3 /CMM (0.1-1.30); MONOCYTES % (AUTO) 7.8 % (2.0-12.0); NEUTROPHILS # (AUTO) 2.9 /CMM (1.8-8.9); NEUTROPHILS % (AUTO) 70.4 % (43.0-81.0); PLATELET COUNT (AUTO) 160 /CMM (150-450); RED BLOOD CELL COUNT(AUTO) 2.31 MIL/uL (4.0-5.2); WHITE BLOOD COUNT (AUTO) 4.2 K/uL (4.3-11.0)
--- NOTE | 2018-08-29 06:40 | NUR ---
RN NOTES, Patient in bed awake a/o x2 breathing even and unlabored, no sob/acute distress noted at this time, Pt tolerated on simple mask at this time, due to nose clamp in placed, patient with 3 episodes of nose bleed, Mckeon aware and ordered stat H&H during the shift due to blood loss, with values 7.5/23 after that surveillance dual rate officer with another episode of nose bleed per Mckeon just follow up with the morning labs results, no bleeding noted at this time, R AC G18, SL, patent & intact, no s/s infiltration noted, patient will have EGD in the morning, and will be NPO since midnight, Safety precaution in place at all times, bed in locked and lowest position, Call light placed w/i reach, Will endorse continuity of care to oncoming nurse.
[2018-08-29 06:51] LABS: CALCIUM, SERUM 8.1 mg/dL (8.5-10.1); CARBON DIOXIDE 27 mmol/L (21-32); CHLORIDE 110 mmol/L (98-107); CREATININE 1.1 mg/dL (0.6-1.3); GLUCOSE 93 mg/dL (74-106); MAGNESIUM 2.5 mg/dL (1.8-2.4); PHOSPHORUS 2.8 mg/dL (2.5-4.9); POTASSIUM 4.1 mmol/L (3.5-5.1); SODIUM SERUM 144 mmol/L (136-145); UREA NITROGEN, BLOOD 20 mg/dL (7-18)
[2018-08-29] MEDS: LEVOTHYROXINE SODIUM 75 MCG TABLET PO SCH (07:30)
--- NOTE | 2018-08-29 07:30 | NUR ---
RN MAURICE INITIAL NOTES: RECIEVED PT FROM DIRECTOR OF ACCOUNTING NURSE IN STABLE CONDITION. PT WAS A & 0 x 3, VITALS STABLE. NO SOB. NO ACUTE DISTRESS. PT ON 2 LITERS OF NASAL VIA NASAL CANNULA, SATURATING WELL. PT NPO STARTING AT MIDNIGHT. REMAINS NPO BEFORE EGD AT 11 AM- CLEAR LIQUIDS WILL RESUME PRIOR TO PROCEDURE VIA DOCTORS ORDERS.
[2018-08-29] MEDS: LOSARTAN POTASSIUM 50 MG TABLET PO SCH (08:08)
[2018-08-29] MEDS: BLOOD SUGAR DIAGNOSTIC 1 EACH STRIP IN SCH ×4 (08:30→22:05)
[2018-08-29] MEDS: PANTOPRAZOLE 40 MG VIAL IV SCH ×2 (08:30→16:47)
--- NOTE | 2018-08-29 10:15 | NUR ---
MAURICE RN N0TES:PREOP PT TAKEN FOR EGD IN STABLE CONDITION. VITALS STABLE. CONSENTS OBTAINED FROM 08.28.18
--- NOTE | 2018-08-29 12:00 | NUR ---
MAURICE RN NOTES: POST OPP PT BACK FROM OR, IN STABLE CONDITION, VITAL STABLE, ORDERS FROM MD NOTED. CLEAR LIQUID DIET ORDERED PER MD
[2018-08-29] MEDS: SUCRALFATE 1 G TABLET PO SCH ×3 (12:12→21:40)
[2018-08-29] MEDS: NYSTATIN CREAM 15 GM TUBE TP SCH (12:50)
--- NOTE | 2018-08-29 18:52 | NUR ---
PT REMAINS STABLE POST EGD. PT HAD NO ACUTE CHANGES DURING MY SHIFT. BLOOD INFUSING BOOK CANVASSER ORDER - NO TRANSFUSION REACTION, 15 MINS POST TRANSFUSION REACTION. SAFETY MEASURES IN PLACE. PRN CARE RENDERED. WILL ENDORSE TO UNLOADER OPERATOR RN TO COMPLETE BLOOD TRANSFUSION AND MARU.
--- NOTE | 2018-08-29 19:40 | NUR ---
RN NOTES RECEIVED PT WITH BLOOD TRANSFUSION RUNNING, AWAKE ALERT ORIENTED X 3 WATCHING TV ON BED BREATHING EVEN AND UNLABORED WITH O2 3LPM VIA NC SATURATION 98%. AFEBRILE. VSS. SR ON TELE MONITOR HR 63. IV SITE ON RAC G 18 HL INTACT AND PATENT. NOTED PATIENT SPITTING UP CLOTTED BLOOD. MD IS AWARE. CONTINUE TO MONITOR H/H ORDERED BY MD. KEPT PT CLEAN AND COMFORTABLE ON BED. KEPT PT CLEAN AND DRY NEEDS ATTENDED. YENIFER LIGHT KEPT WITHIN EASY REACH.
--- NOTE | 2018-08-29 22:07 | NUR ---
RN NOTES BLOOD TRANSFUSION FINISHED. VSS. AFEBRILE. NO ADVERSE REACTION NOTED. BREATHING EVEN AND UNLABORED. SATURATION REMAINED 97%. WILL CONTINUE TO MONITOR.
--- NOTE | 2018-08-29 23:49 | NUR ---
PT NOTED WITH FRESH BLOOD CLOTH VOMITING, WITH EPISTAXIS, WOLFE DEPARTMENT COORDINATOR POSTBED STITCHER NOTIFIED, WITH ORDER OF STAT HEMOGLOBIN ORDER AND APPLIED PRESSURE AT THIS TIME, LAB CALLED , PRIMARY NURSE MADE AWARE.
[2018-08-30] VITALS: BP 140/70
[2018-08-30 00:06] LABS: HEMOGLOBIN 8.4 g/dL (11.5-14.8)
[2018-08-30] MEDS: NYSTATIN CREAM 15 GM TUBE TP SCH ×2 (00:26→11:09)
--- NOTE | 2018-08-30 01:00 | NUR ---
RN NOTES LATEST HGB 8.4 AND HCT 25
[2018-08-30 04:00] VITALS: BP 100/56
[2018-08-30 06:24] LABS: BASOPHILS % (AUTO) 0.3 % (0.0-2.0); HEMATOCRIT 24 % (33-45); LYMPHOCYTES # (AUTO) 0.9 /CMM (0.8-4.8); LYMPHOCYTES % (AUTO) 14.5 % (20.0-44.0); MEAN CORPUSCULAR HGB CONC 34 g/dl (31.0-36.0); MEAN CORPUSCULAR VOLUME 93 fL (82-100); MONOCYTES # (AUTO) 0.4 /CMM (0.1-1.30); MONOCYTES % (AUTO) 7.3 % (2.0-12.0); NEUTROPHILS # (AUTO) 4.5 /CMM (1.8-8.9); NEUTROPHILS % (AUTO) 74.9 % (43.0-81.0); PLATELET COUNT (AUTO) 143 /CMM (150-450); RED BLOOD CELL COUNT(AUTO) 2.54 MIL/uL (4.0-5.2); WHITE BLOOD COUNT (AUTO) 6.1 K/uL (4.3-11.0)
--- NOTE | 2018-08-30 06:49 | NUR ---
RN NOTES PATIENT ASLEEP WELL . DENIES PAIN EXCEPT WHEN TOUCHING LE. OFFERED PAIN MEDICINE, BUT PATIENT STATED THAT SHES FINE WITHOUT PAIN MEDICINE. NO CHANGE OF MENTAL STATUS. REMAINED AOX4. BREATHING EVEN AND UNLABORED, CONTINUE WITH O2 ORDERED. SR ON TELE MONITOR. PATIENT STILL SPITTING CLOTTED BLOOD BUT LESSER THAN THE FIRST 2 EPISODE, NO MORE EPISTAXIS AFTER 1 TIME EPISODE LAST NIGHT. BED BATH DONE AND TOLERATED WELL. H/H CONTINUE TO MONITOR.C
[2018-08-30 07:11] LABS: CALCIUM, SERUM 7.9 mg/dL (8.5-10.1); CARBON DIOXIDE 26 mmol/L (21-32); CHLORIDE 110 mmol/L (98-107); CREATININE 0.9 mg/dL (0.6-1.3); GLUCOSE 85 mg/dL (74-106); MAGNESIUM 2.4 mg/dL (1.8-2.4); PHOSPHORUS 2.5 mg/dL (2.5-4.9); POTASSIUM 4.1 mmol/L (3.5-5.1); SODIUM SERUM 143 mmol/L (136-145); UREA NITROGEN, BLOOD 17 mg/dL (7-18)
--- NOTE | 2018-08-30 07:30 | NUR ---
RECEIVED PATIENT FROM RN. PATIENT AWAKE AND ALERT X3 DENIES PAIN, SOB, DIFFICULTY BREATHING. PER RN 1X NOSE BLEED LAST NIGHT WITH CLOTS AND S/P 1 UNIT PRBC. PATIENT ON 3LNC TOLERATING WELL NO SOB, DIFFICULTY BREATHING. IV SITES C/D/I/P. SAFETY, SKIN, ASPIRATION PRECAUTIONS IN PLACE AND WILL MONITOR. CALL LIGHT IN REACH.
--- NOTE | 2018-08-30 07:41 | NUR ---
WOUND CARE CONSULT WOUND CARE RECEIVED CONSULT FOR EXCORIATION AND SKIN DISCOLORATION ON LOWER EXTREMITIES. WOUND CARE WILL DEFER CONSULT AND ALL TREATMENT PLANS TO PLASTIC SURGICAL TEAM WELL DPM DR CASTELLON WHO ARE ALL CURRENTLY FOLLOWING THIS PATIENT. PATIENT WITH MARILEE AT 15, ALL PRESSURE ULCER PREVENTION MEASURES ARE NOTED TO BE IN PLACE. WILL SEE PRN.
[2018-08-30 08:00] VITALS: BP 108/44
[2018-08-30] MEDS: LEVOTHYROXINE SODIUM 75 MCG TABLET PO SCH (08:21)
[2018-08-30] MEDS: SUCRALFATE 1 G TABLET PO SCH ×4 (08:21→21:17)
[2018-08-30] MEDS: LOSARTAN POTASSIUM 50 MG TABLET PO SCH (08:21)
[2018-08-30] MEDS: PANTOPRAZOLE 40 MG VIAL IV SCH ×2 (08:21→16:55)
[2018-08-30] MEDS: BLOOD SUGAR DIAGNOSTIC 1 EACH STRIP IN SCH ×4 (08:43→21:17)
--- NOTE | 2018-08-30 15:44 | NUR ---
ATTEMPTED TO CALL DTR BACK BUT RECEIVING BUSY SIGNAL ONLY
[2018-08-30 16:00] VITALS: BP_SYST 104; BP_DIAS 46; BP_DIAS 60
[2018-08-30] MEDS: Z GUARD REMEDY 2 OZ OINT TP PRN (16:55)
--- NOTE | 2018-08-30 19:15 | NUR ---
CARE ENDORSED TO RN FOR MARU. PATIENT STABLE. NO S/S BLEEDING AT THIS TIME. PATIENT HAD X2 EPISODES OF WHAT APPEARED TO BE NOSE BLEEDING FROM LEFT NARE WITH CLOTS PRESENT AND SPITTING OUT. ENTREPRENEUR ENDY AWARE AND VISUALIZED AT BEDSIDE. PATIENT SAFETY, SKIN, ASPIRATION PRECAUTIONS IN PLACE AND MONITORED THROUGHOUT DAY.
--- NOTE | 2018-08-30 19:30 | NUR ---
MS RN NOTE: RECEIVED PT ON BED ALERT AND ORIENTED X3. NO APPARENT DISTRESS NOTED. NO COMPLAINTS OF PAIN OR DISCOMFORT AT THIS TIME. ON 2LPM NASAL CANNULA, BREATHING EVEN AND UNLABORED WITH NORMAL RESPIRATIONS. IV ON RIGHT ANTECUBITAL #18 INTACT AND PATENT, FLUSHING WELL. NO SIGNS/SYMPTOMS OF INFILTRATION NOTED. KEPT CLEAN, DRY AND COMFORTABLE. CALL LIGHT PLACED WITHIN REACH. SIDE RAILS UP X3. BED ALARM ON. BED LOCKED AND IN LOWEST POSITION. WILL CONTINUE TO MONITOR PT.
[2018-08-30 20:00] VITALS: BP 108/56
[2018-08-31] VITALS (9 sets, daily range): BP systolic 112–139; BP diastolic 52–78
[2018-08-31] MEDS: NYSTATIN CREAM 15 GM TUBE TP SCH ×2 (00:06→11:46)
--- NOTE | 2018-08-31 06:37 | NUR ---
MS RN NOTE: PT HAD A 1X EPISODE OF BRIGHT RED EMESIS. NO APPARENT DISTRESS NOTED. NO COMPLAINTS OF PAIN OR DISCOMFORT AT THIS TIME. NO SOB NOTED. IV ON RIGHT ANTECUBITAL #18 INTACT AND PATENT, FLUSHING WELL. KEPT CLEAN, DRY AND COMFORTABLE. CALL LIGHT PLACED WITHIN REACH. SAFETY AND FALL PRECAUTIONS OBSERVED AND MAINTAINED. WILL ENDORSE TO DAY SHIFT RN FOR CONTINUITY OF CARE.
[2018-08-31 07:15] LABS: BASOPHILS % (AUTO) 0.4 % (0.0-2.0); EOSINOPHILS % (AUTO) 4.2 % (0.0-6.0); HEMATOCRIT 22 % (33-45); HEMOGLOBIN 7.3 g/dL (11.5-14.8); LYMPHOCYTES # (AUTO) 1.2 /CMM (0.8-4.8); LYMPHOCYTES % (AUTO) 23.8 % (20.0-44.0); MEAN CORPUSCULAR HGB CONC 34 g/dl (31.0-36.0); MEAN CORPUSCULAR VOLUME 93 fL (82-100); MONOCYTES # (AUTO) 0.5 /CMM (0.1-1.30); MONOCYTES % (AUTO) 9.4 % (2.0-12.0); NEUTROPHILS # (AUTO) 3.1 /CMM (1.8-8.9); NEUTROPHILS % (AUTO) 62.2 % (43.0-81.0); PLATELET COUNT (AUTO) 147 /CMM (150-450); RED BLOOD CELL COUNT(AUTO) 2.34 MIL/uL (4.0-5.2)
[2018-08-31 07:38] LABS: CALCIUM, SERUM 7.9 mg/dL (8.5-10.1); CARBON DIOXIDE 27 mmol/L (21-32); CHLORIDE 111 mmol/L (98-107); CREATININE 0.9 mg/dL (0.6-1.3); GLUCOSE 80 mg/dL (74-106); MAGNESIUM 2.4 mg/dL (1.8-2.4); PHOSPHORUS 2.7 mg/dL (2.5-4.9); POTASSIUM 4.3 mmol/L (3.5-5.1); SODIUM SERUM 144 mmol/L (136-145); UREA NITROGEN, BLOOD 20 mg/dL (7-18)
[2018-08-31] MEDS: BLOOD SUGAR DIAGNOSTIC 1 EACH STRIP IN SCH ×4 (07:58→21:35)
[2018-08-31] MEDS: LEVOTHYROXINE SODIUM 75 MCG TABLET PO SCH (08:00)
[2018-08-31] MEDS: SUCRALFATE 1 G TABLET PO SCH ×4 (08:01→21:37)
[2018-08-31] MEDS: PANTOPRAZOLE 40 MG VIAL IV SCH ×2 (09:06→17:08)
[2018-08-31] MEDS: LOSARTAN POTASSIUM 50 MG TABLET PO SCH (09:07)
[2018-08-31] MEDS: POLYVINYL ALCOHOL 15 ML BOTTLE EACHEYE PRN (09:14)
--- NOTE | 2018-08-31 10:09 | NUR ---
MS RN OPENING NOTE: RECEIVED PT IN BED SLEEPING. ALERT AND ORIENTED X3. NO SOB OR DISTRESS NOTED. PATIENT ON 2L O2 VIA NC. BREATHING EVEN AND UNLABORED WITH NORMAL RESPIRATIONS. R AC IV #18 INTACT AND PATENT, FLUSHING WELL. NO S/S OF INFILTRATION NOTED. PT CLEAN, DRY AND COMFORTABLE. CALL LIGHT PLACED WITHIN REACH. SIDE RAILS UP X3. BED ALARM ON. BED LOCKED AND IN LOWEST POSITION. WILL CONTINUE TO MONITOR.
[2018-08-31] MEDS ORDERED: PANT40TA2 PO (14:07)
[2018-08-31] MEDS ORDERED: FERR-56 PO (14:07)
[2018-08-31] MEDS ORDERED: SUCR1TAB PO (14:07)
--- NOTE | 2018-08-31 20:00 | NUR ---
RN/MS NOTES: RECEIVED PT. IN BED W/ HOB ELEVATED. ALERT AND ORIENTED X 3. NO S/S OF ANY RESPIRATORY DISTRESS. W/ O2 @ 2LPM VIA N/C SAT 98%. IV ON RT. AC G 18 PATENT AND INTACT W/ NO S/S OF INFECTION/INFILTRATION NOTED. INCONTINENT OF B/B. BLOOD TRANSFUSION GOING. PT. DENIES ANY C/O SOB OR CHEST PAIN OR OTHER ISSUES. BED LOCKED AND IN LOW POSITION. S/P ONE UNIT OF PRBC W/ NO REACTION NOTED. CALL LIGHT W/ REACH. WILL CONTINUE TO MONITOR.
--- NOTE | 2018-08-31 20:42 | NUR ---
BLOOD TRANSFUSION STARTED W/O INCIDENT. V/S STABLE, NO SOB, FEVER OR S/S OF DISTRESS.
[2018-09-01 04:00] VITALS: BP 130/66
--- NOTE | 2018-09-01 07:19 | NUR ---
RN/MS NOTES: REPORT GIVEN TO NEXT SHIFT NURSE FOR AMRU.
[2018-09-01 08:00] VITALS: BP 128/72
--- NOTE | 2018-09-01 08:00 | NUR ---
RN/MS NOTES: RECEIVED PT. IN BED . ALERT AND ORIENTED X 3. NO S/S OF ANY RESPIRATORY DISTRESS.NO SOB W/ O2 @ 2LPM VIA N/C SAT 98%. IV ON RT. AC G 18 PATENT AND INTACT W/ NO S/S OF INFECTION/INFILTRATION NOTED.KEEP CLEAN DRY PT. DENIES ANY C/O SOB OR CHEST PAIN OR OTHER ISSUES. BED LOCKED AND IN LOW POSITION.PLAN OF CARE DISCUSSED WITH PATENT CALL LIGHT W/ REACH. WILL CONTINUE TO MONITOR.
[2018-09-01] MEDS: LEVOTHYROXINE SODIUM 75 MCG TABLET PO SCH (08:07)
[2018-09-01] MEDS: SUCRALFATE 1 G TABLET PO SCH ×4 (08:07→21:04)
[2018-09-01] MEDS: PANTOPRAZOLE 40 MG VIAL IV SCH ×2 (08:07→17:19)
[2018-09-01] MEDS: LOSARTAN POTASSIUM 50 MG TABLET PO SCH (08:08)
[2018-09-01] MEDS: BLOOD SUGAR DIAGNOSTIC 1 EACH STRIP IN SCH ×4 (08:10→21:04)
[2018-09-01 10:38] LABS: BASOPHILS % (AUTO) 0.7 % (0.0-2.0); EOSINOPHILS % (AUTO) 4.8 % (0.0-6.0); HEMATOCRIT 25 % (33-45); HEMOGLOBIN 8.3 g/dL (11.5-14.8); LYMPHOCYTES # (AUTO) 1.1 /CMM (0.8-4.8); LYMPHOCYTES % (AUTO) 22.9 % (20.0-44.0); MEAN CORPUSCULAR HGB CONC 33 g/dl (31.0-36.0); MEAN CORPUSCULAR VOLUME 93 fL (82-100); MONOCYTES # (AUTO) 0.3 /CMM (0.1-1.30); MONOCYTES % (AUTO) 6.6 % (2.0-12.0); NEUTROPHILS # (AUTO) 3.2 /CMM (1.8-8.9); PLATELET COUNT (AUTO) 146 /CMM (150-450); RED BLOOD CELL COUNT(AUTO) 2.69 MIL/uL (4.0-5.2); WHITE BLOOD COUNT (AUTO) 4.9 K/uL (4.3-11.0)
--- NOTE | 2018-09-01 11:23 | NUR ---
MS RN NOTE PT AT BESIDE ABLE TO AMBULATE WITH PT USING A WALKER
[2018-09-01] MEDS: NYSTATIN CREAM 15 GM TUBE TP SCH ×3 (11:27→22:51)
--- NOTE | 2018-09-01 11:49 | NUR ---
MS RN NOTE SITTING ON CHAIR ,NOT IN DISTRESS,PER MAGGIE SERRANO CARBIDE GRINDER OK TO DISCHARGE TODAY TO SNF , [facility] SERVICES COORDINATOR CALLED TO DAUGHTER KEN, AWARE THAT PATENT WELL BE DISCHARGE TODAY
--- NOTE | 2018-09-01 12:48 | NUR ---
MS RN NOTE CALLED TO [facility] X2 STILL UNABLE TO GIVE REPORT, SPOKE WITH HOUSETRAILER SERVICER STATED THAT NURSES STILL BUSY ,WILL F\U
--- NOTE | 2018-09-01 15:07 | NUR ---
MS RN NOTE CALLED TO SNF REPORT GIVEN TO YUNI SERRANO
[2018-09-01 16:00] VITALS: BP_SYST 105; BP_SYST 128; BP_DIAS 50; BP_DIAS 72
--- NOTE | 2018-09-01 17:20 | NUR ---
MS RN NOTE FAMILY REFUSE TO GO TO SNF TILL SPEAK WITH DR APODACA ,CALLED TP DR ENCARNACION , SPOKE WITH FAMILY , CASE MANAGE NOTIFIED PATIENT WILL BE TRANSFER AT 1845 TO SNF WILL F\U
--- NOTE | 2018-09-01 18:27 | NUR ---
MS RN NOTE HAVING DINNER , ABLE TO EAT SELF, NOT IN DISTRESS. WILL CONT TO MONITOR, AWAITING AMBULANCE
--- NOTE | 2018-09-01 19:00 | NUR ---
MS RN NOTE DISCHARGE INSTRUCTION GIVEN, HL REMOVED, NO BLEEDING NOTED , BELONGING SIGNED, PATINT WILL BE TRANSFER TO SNF SOON
--- NOTE | 2018-09-01 19:35 | NUR ---
MS RN NOTE AMBIANCE ARRIVED , REPORT GIVEN BUT NOTED PATIENT HAS MOUTH BLEEDING SMALL AMT AMBIANCE CANT TAKE PATIENT TO SNF , FIDEL SMOKE ROOM OPERATOR FIDEL NOTIFIED SALTED THAT WILL F\U , CHARGE NURSE INFORM AND ENDORSED TO NEXT SHIFT RN TO REPORT TO DOCTOR
[2018-09-01 20:00] VITALS: BP_SYST 124; BP_SYST 128; BP_DIAS 87
--- NOTE | 2018-09-01 20:00 | NUR ---
RN INITIAL NOTE: RECEIVED PT IN BED. ALERT AND ORIENTED X3. NO SOB OR DISTRESS NOTED. PATIENT ON 2L O2 VIA NC. BREATHING EVEN AND UNLABORED WITH NORMAL RESPIRATIONS. CALL LIGHT PLACED WITHIN REACH. SIDE RAILS UP X3. BED ALARM ON. BED LOCKED AND IN LOWEST POSITION. ENDORSED TO ME THAT THE PLAN WAS TO D/C PT TO A SNF. HOWEVER PER AM RN AMBULANCE REFUSED TO TRANSPORT PT BECAUSE PT WAS BLEEDING FROM NOSE AND MOUTH. BASED ON MY INITIAL ASSESSMENT PT WAS NOT ACTIVELY BLEEDING AT THIS TIME. PT STATED SHE WAS BLEEDING FROM THE NOSE, AND SPITING UP BLOOD AND CLOTS FROM THE MOUTH, WHEN THE AMBULANCE WAS PRESENT. CHARGE NURSE ELROY AND STEVE MADE AWARE. [facility] ON-CALL LUIS TOMPKINS MADE AWARE. DAUGHTER ALEX MADE AWARE THAT PT WILL NOT BE DC PLANNED TONIGHT. WILL CONTINUE TO CLOSELY MONITOR.
--- NOTE | 2018-09-01 20:55 | NUR ---
RN NOTES I WAS CALLED WITH TO PTS ROOM. PTS NOTED WITH NOSE BLEED AND SPITTING BLOOD FROM MOUTH WITH CLOTS. PROTOCOL INITIATED. CHARGE NURSE STEVE MADE AWARE. STEVE CALLED MD LUIS TOMPKINS, LUIS TOMPKINS MADE AWARE. LUIS TOMPKINS ORDERED ,CBC STAT AND AFRIN 2 SPRAY TO EACH NOSTRILS Q8HRS PRN FOR NOSE BLEED, DAUGHTER MADE AWARE OF ORDER. WILL CONTINUE TO CLOSELY MONITOR PT.
--- NOTE | 2018-09-01 21:00 | NUR ---
MS RN NOTES PTS NOTED WITH NOSE BLEED WITH CLOT , IN MODERATE AMT , V/S BP 128/76 HR 76 RR18 TEMP 97.8, MADE AWARE LUIS TURNER WITH ORDER HOLD DISCHARGE TONITE ,CBC STAT AND AFRIN 2 SPRAY TO EACH NOSETRILS Q 6HRS PRN FOR NOSE BLEED, DAUGHTER MADE AWARE OF ORDER. WILL CONTINUE TO MONITOR PTS.
--- NOTE | 2018-09-01 21:15 | NUR ---
ms rn notes spoke to after hour pharmacist recommendation for afrin is q8hrs prn via nasal spray , made aware , lucrecia with recommendation .
[2018-09-01] MEDS ORDERED: OXYMETAZOLINE HCL NASAL SPRAY 30 ML BOTTLE NS PRN (22:00)
[2018-09-01] MEDS ORDERED: OXYMETAZOLINE HCL NASAL SPRAY 30 ML BOTTLE NS ONE (22:29)
[2018-09-01 22:36] LABS: BASOPHILS % (AUTO) 0.5 % (0.0-2.0); EOSINOPHILS % (AUTO) 4.1 % (0.0-6.0); HEMATOCRIT 28 % (33-45); HEMOGLOBIN 9.1 g/dL (11.5-14.8); LYMPHOCYTES # (AUTO) 1.2 /CMM (0.8-4.8); LYMPHOCYTES % (AUTO) 22.4 % (20.0-44.0); MEAN CORPUSCULAR HGB CONC 33 g/dl (31.0-36.0); MEAN CORPUSCULAR VOLUME 93 fL (82-100); MONOCYTES # (AUTO) 0.3 /CMM (0.1-1.30); MONOCYTES % (AUTO) 6.6 % (2.0-12.0); NEUTROPHILS # (AUTO) 3.4 /CMM (1.8-8.9); NEUTROPHILS % (AUTO) 66.4 % (43.0-81.0); PLATELET COUNT (AUTO) 176 /CMM (150-450); RED BLOOD CELL COUNT(AUTO) 2.98 MIL/uL (4.0-5.2); WHITE BLOOD COUNT (AUTO) 5.2 K/uL (4.3-11.0)
[2018-09-01] MEDS: OXYMETAZOLINE HCL NASAL SPRAY 30 ML BOTTLE NS PRN (23:19)
[2018-09-02 04:00] VITALS: BP 120/65
--- NOTE | 2018-09-02 06:12 | NUR ---
RN NOTES PT RESTING IN BED, NO MORE BLEEDING REPORTED OVERNIGHT. WILL ENDORSE TO AM RN.
[2018-09-02] MEDS: LEVOTHYROXINE SODIUM 75 MCG TABLET PO SCH (07:35)
[2018-09-02] MEDS: SUCRALFATE 1 G TABLET PO SCH ×2 (07:35→12:46)
[2018-09-02] MEDS: BLOOD SUGAR DIAGNOSTIC 1 EACH STRIP IN SCH ×2 (07:35→12:44)
--- NOTE | 2018-09-02 07:45 | NUR ---
RN MS OPENING NOTES RECEIVED PATIENT AWAKE IN BED A/O X4. NO SIGNS OR SYMPTOMS OF RESPIRATORY DISTRESS OR ACUTE PAIN. NO EPISTAXIS NOTED.PATIENT BED RIDDEN ABLE TO MAKE NEEDS KNOWN NO IV ACCESS AT THIS TIME. AWAITING FOR CLARIFICATION FOR DISCHARGE TO PREFERRED FACILITY.SAFETY PRECAUTIONS IN PLACE BED IN LOW POSITION CALL LIGHT WITHIN REACH. WILL CON TO MONITOR
[2018-09-02 08:00] VITALS: BP 131/72
[2018-09-02 08:11] VITALS: BP 131/72
[2018-09-02] MEDS: LOSARTAN POTASSIUM 50 MG TABLET PO SCH (09:20)
[2018-09-02] MEDS: POLYVINYL ALCOHOL 15 ML BOTTLE EACHEYE PRN (09:28)
[2018-09-02] MEDS ORDERED: PANTOPRAZOLE 40 MG TABLET.DR PO SCH (09:30)
[2018-09-02] MEDS: OXYMETAZOLINE HCL NASAL SPRAY 30 ML BOTTLE NS PRN (09:33)
[2018-09-02] MEDS: NYSTATIN CREAM 15 GM TUBE TP SCH (11:30)
--- NOTE | 2018-09-02 12:40 | NUR ---
RN NOTES REPORT GIVEN TO ROMEL SERRANO AT [facility].
[2018-09-02 13:19] VITALS: BP 122/68
--- NOTE | 2018-09-02 13:21 | NUR ---
MS RN D/C NOTE [facility] AMBULANCE PERSONNEL AT BEDSIDE. PT STABLE. VITALS SPO2 98 ON ROOM AIR, HR 75, RR 20, 122/68. PHOTOS TAKEN AND IV OUT. ALL EXIT CARE AND EDUCATION EXPLAINED TO PATIENT. ALL BELONGINGS ACCOUNTED FOR. PT. LEFT VIA GURNEY/AMBULANCE.
== END 2018-09-02 13:25 | DRG 378 ==
LOC: ER 18:41 → TELE-TD 21:16 → MEDSG1 08-30 10:04
PROVIDERS: ADMIT Nurse Practitioner Acute Care; ATTEND Nurse Practitioner Acute Care
PROC: 0DB68ZX Excision of Stomach, Via Natural or Artificial Opening Endoscopic, Diagnostic (ICD-10-PCS; principal; 2018-08-29)
PROC: 30233N1 Transfusion of Nonautologous Red Blood Cells into Peripheral Vein, Percutaneous Approach (ICD-10-PCS; 2018-08-29)
DX: K29.51 Unspecified chronic gastritis with bleeding (principal); D62 Acute posthemorrhagic anemia; E44.1 Mild protein-calorie malnutrition; D68.59 Other primary thrombophilia; I50.32 Chronic diastolic (congestive) heart failure; Z68.42 Body mass index [BMI] 45.0-49.9, adult; I13.0 Hypertensive heart and chronic kidney disease with heart failure and stage 1 through stage 4 chronic kidney disease, or unspecified chronic kidney disease; J98.11 Atelectasis; I87.313 Chronic venous hypertension (idiopathic) with ulcer of bilateral lower extremity; E03.9 Hypothyroidism, unspecified; G89.4 Chronic pain syndrome; K44.9 Diaphragmatic hernia without obstruction or gangrene; E11.22 Type 2 diabetes mellitus with diabetic chronic kidney disease; N18.9 Chronic kidney disease, unspecified; M54.5 Low back pain; M19.90 Unspecified osteoarthritis, unspecified site; Z96.653 Presence of artificial knee joint, bilateral; D63.8 Anemia in other chronic diseases classified elsewhere; D72.819 Decreased white blood cell count, unspecified; R74.0 Nonspecific elevation of levels of transaminase and lactic acid dehydrogenase [LDH]; E80.6 Other disorders of bilirubin metabolism; E11.65 Type 2 diabetes mellitus with hyperglycemia; I27.20 Pulmonary hypertension, unspecified; E66.01 Morbid (severe) obesity due to excess calories; E78.5 Hyperlipidemia, unspecified; L30.4 Erythema intertrigo; K31.9 Disease of stomach and duodenum, unspecified; I87.2 Venous insufficiency (chronic) (peripheral); E11.51 Type 2 diabetes mellitus with diabetic peripheral angiopathy without gangrene; R04.0 Epistaxis; I72.3 Aneurysm of iliac artery
CPT/HCPCS: 36415; 71045-TC; 76705-TC; 80048-TC; 80061-TC; 80076-TC; 82140-TC; 82962-TC; 83690-TC; 83735-TC; 83880; 84100-TC; 84443-TC; 84484-TC; 85025-TC; 85027-TC; 85730-TC; 86850-TC; 86921-TC; 87081-TC; 88305-TC; 88313-TC; 88342; 97110-TC; 97116-TC; 97530-TC; A6253; A6402; C9113; G0378; J1815; J2354; J2405; J2704; J7040; J7050; P9016-BL; Q9967